=== PATIENT | female | born 1940 | race Caucasian/White ===

== ENCOUNTER 2019-11-25 09:49 | Observation (INO) | payer OTHER, SELFPAY ==
[2019-11-24 11:44] VITALS: BMI 24.4
[2019-11-25] VITALS (17 sets, daily range): BP systolic 92–126; BP diastolic 37–73; PULSE 72–96; RESP 12–20; TEMP 36.1–36.8; O2SAT 90–100; BMI 24.3
[2019-11-25] MEDS: LACTATED RINGERS 1,000 ML 42 ML IV (10:15)
[2019-11-25] MEDS: LACTATED RINGERS 1,000 ML 100 ML IV ×2 (11:00→13:00)
--- NOTE | 2019-11-25 11:21 | PM.PREOP ---
Pre-operative Note Interval Note History & Physical reviewed/Exam performed by Physician: Yes Changes to H&P: No
[2019-11-25] MEDS: CEFAZOLIN 2 GM/100 ML FROZ.PIGGY IV (11:35)
--- NOTE | 2019-11-25 12:07 | SUR.OPER ---
Supine on padded OR bed, head on pillow, arm padded and tucked at side, legs uncrossed, safety belt at thigh, tape over blanket over lower legs .
[2019-11-25] MEDS: BUPIVACAINE 0.25% W/ EPI 30 ML VIAL INJ (12:12)
--- NOTE | 2019-11-25 13:16 | PM.OP.1 ---
Operative Date/Time/Diagnoses Date of procedure: 11/25/19 Time of procedure: 13:16 Pre-op diagnosis: right inguinal hernia Post-op diagnosis: other (right indirect inguinal hernia, no left hernia; evidence of prior left inguinal hernia mesh repair) Procedure & Clinicians Procedure: laparoscopic repair of right inguinal hernia with mesh Same procedure as scheduled: Yes Indications: symptomatic right inguinal hernia Surgeon: Celeste Carver Yes if Unassisted: Yes Anesthesia Type: General Operative Notes Findings: no left inguinal hernia; evidence of prior left inguinal hernia mesh repair; right indirect inguinal hernia Specimen(s): none sent Prosthetic devices, grafts, tissues, transplants, or devices: BARD medium size 3-D max mesh Estimated Blood Loss (mL): 1 Blood products transfused: none Procedure in detail: The patient was brought into the operating room and placed supine on the OR table. Sequential compression devices were placed on both legs and turned on. Appropriate perioperative antibiotics were given prior to the start of surgery. General anesthesia was induced the patient was intubated. A Kemp catheter was placed sterilely in the bladder. The abdomen and groins were prepped and draped in sterile fashion. Surgical time-out was conducted. Local anesthetic was injected under the skin just superior to the umbilicus and a 5 mm vertical incision was made at this site. The umbilical stalk was grasped with a Thomas and elevated. A Veress needle was passed through the fascia into proper position. The position was tested with a saline drop test which was appropriate for intra-abdominal Veress needle placement. The abdomen was then insufflated in the usual fashion. Once insufflated to 15 mm Hg the Veress needle was removed and a 5 mm optical trocar was placed under direct vision using a 5 mm 30 degree scope. Once the camera was inside the abdomen I took a look around. There was no injury from port placement. Two additional ports were placed in a similar fashion in the right and left mid clavicular line at the level of the umbilicus, one handbreadth lateral to the umbilicus. The umbilical port was upsized to a 10mm port. Attention was turned to the pelvis, and both inguinal regions were evaluated. On the left there was no evidence of hernia, but surgical mesh could be seen beneath the peritoneum on the left side, consistent with prior left inguinal hernia repair. On the right side there was a deep hernia in the indirect space, with heavy scar. Local anesthetic was in the infiltrated into the abdominal wall using 0.25% Marcaine with epi, in the region of the expected peritoneal incision. Metzenbaum scissors attached to cautery were then used to incise the peritoneum transversely from the midline laterally to the ASIS, 10 cm superior to the inguinal hernia defect. The peritoneal flap was developed down to the inguinal hernia defect. There was only an indirect defect, and no direct or femoral defect was seen. Once the flap had been fully developed and the groin structures were completely exposed, and all potential defects had been fully evaluated, I then exposed the pubic tubercle and pushed down the bladder so that there was space for good mesh placement. A medium sized 3DMax macro porous mesh was then brought into the field. I placed it through the 10 mm port and positioned it within the surgical defect covering both hernia defects with 5 cm overlap in each direction. I then secured the mesh to the pubic tubercle in 2 locations using a Bard surgical Tacker. I then secured it to the abdominal wall at the superior edge of the mesh, far away from the triangle of doom and the triangle of pain. These tacks were placed avoiding the epigastric vessels as well. Once the mesh was secured in place I brought up the peritoneal flap. There was no clam shelling or bending of the mesh when the peritoneal flap was brought up. I then secured the peritoneum up to the abdominal wall using the Bard surgical Tacker, with dissolvable tacks. There was no gapping of the peritoneal flap or exposed mesh. At this point the mesh was well positioned, secured, and well covered. There was no exposed mesh, no bleeding, and the peritoneal flap was in good position. I then infiltrated the abdominal wall in the area of dissection with an additional 20 mL of local anesthetic. At this point the umbilical port site was closed with 0 Vicryl suture in the fascia using a Trey-Ziggy suture Passer. Insufflation was then removed from the abdomen, and the umbilical port site was closed with 3-0 Vicryl in the subcutaneous layers, and 4 Monocryl in the skin. The other 2 port sites were closed with 4 Monocryl in the skin. Each port site was sealed with Dermabond. Local anesthetic was given at each of the port sites and in the fascia. This concluded the procedure. At this point the needle sponge and instrument counts were correct. Patient was awakened from anesthesia and extubated. She developed sinus tachycardia with heart rate to 160 as she was waking up from anesthesia. She was given Esmolol by the anesthesiologist, with improvement in HR to 90's. The Kemp catheter was removed. She was transferred to the postanesthesia care unit in stable condition. Complications: none Post-operative Condition: stable Disposition: PACU Plan for aftercare: Dispo pending vitals and exam are stable and pain is well controlled in PACU.
[2019-11-25] MEDS: fentaNYL 100 MCG/2 ML INJ IV ×2 (13:50→14:00)
--- NOTE | 2019-11-25 14:06 | SUR.PHASEI ---
pt to be admitted. she is awake and can verbalize but she dozes off easily . Pt complains of 5 out of 10 pain at present. Pt has icepack to abdomen.
--- NOTE | 2019-11-25 14:17 | SUR.PHASEI ---
Attempted to call report on pt and they were unable to accept report for pt. They will call back in 15 minutes.
[2019-11-25] MEDS: ACETAMINOPHEN 325 MG TABLET 650 MG PO (17:08)
--- NOTE | 2019-11-25 17:53 | PC.NURSE ---
Addendum entered by Amirah Henry R.N. 11/25/19 22:40: 100% on room air following ambulation. Addendum entered by Amirah Henry R.N. 11/25/19 22:34: Ambulatory in hallway as per MD order with DOMESTIC HOUSEKEEPER escort. Trial of room air. Addendum entered by Amirah Henry R.N. 11/25/19 19:22: I.S. teaching completed and pt able to perform weakly. Encouraged use and goal set for pt. Continues to c/o abdominal pain exacerbated with cough 4/10. IV right wrist failed so dc'd and restarted left ac. Toradol administered. Spouse leaves for the evening. Original Note: Pt awake and alert in bed. Has pillow to abdomen for splinting with movement/coughing. Tele placed as per order. ICU informed. S.O. at bedside. Denies nausea. Admits to abdominal/incisional pain 4/10 increasing with cough. Room air 88-90% so 2L per NC replaced. Continuous pulse oximeter in place. BL calf scd's in place. Tylenol to manage pain. Denies nausea. Beginning diet with clear liquids. Up to commode to void with minimal assistance. Bed alarm in place. Some short term memory loss noted.
[2019-11-25] MEDS: KETOROLAC 15 MG/ML VIAL IV (18:11)
[2019-11-25] MEDS: SODIUM CHLORIDE 0.9% FLUSH 10 ML IV (19:15)
[2019-11-25] MEDS: SENNOSIDES 8.6 MG TABLET 17.2 MG PO (21:06)
[2019-11-25] MEDS: DOCUSATE 100 MG CAPSULE PO (21:06)
[2019-11-25] MEDS: HEPARIN 5,000 UNIT/ML VIAL 5000 UNIT SUBCUT (21:07)
[2019-11-26] VITALS: BP 114/58; PULSE 78; RESP 18; TEMP 36.5; O2SAT 95
--- NOTE | 2019-11-26 01:14 | PC.NURSE ---
SPO2 in room air while sleeping only 85%. 2 litters 02 applied & sat. 93-95%, will monitor.
[2019-11-26 05:29] LABS: Add Manual Diff / Slide Review NO; Basophils Absolute Auto 100 /uL (0-100); Basophils Percent Auto 1.2 % (0-2); Eosinophils Absolute Auto 100 /uL (0-450); Eosinophils Percent Auto 0.5 % (2-4); Hematocrit 33.8 % (36-46); Hemoglobin 11.5 g/dL (12.0-16.0); Lymphocytes Absolute Auto 2100 /uL (1100-4500); Lymphocytes Percent Auto 20.4 % (25-40); Monocytes Absolute Auto 1200 /uL (0-900); Monocytes Percent Auto 11.4 % (3-14); Neutrophils Absolute Auto 7000 /uL (1500-7000); Neutrophils Percent Auto 66.5 % (50-75); Platelet Count 288 X10^3/uL (150-400); Red Cell Distribution Width 14.4 % (11.6-14.8); White Blood Cell Count 10.5 X10^3/uL (4.5-11.0)
[2019-11-26 05:36] LABS: Blood Urea Nitrogen 15 mg/dL (7-17); Calcium 8.7 mg/dL (8.4-10.2); Carbon Dioxide 29 mmol/L (22-32); Chloride 107 mmol/L (98-107); Estimated Glomerular Filt Rate > 60.0 mL/min (>60); Glucose 94 mg/dL (80-110); HEMOLYSIS 19 (0-50); Magnesium 1.9 mg/dL (1.6-2.3); Sodium 141 mmol/L (137-145)
[2019-11-26 05:42] VITALS: BP 116/58; PULSE 85; RESP 16; TEMP 36.6; O2SAT 94
[2019-11-26 07:50] VITALS: BP 101/37; PULSE 64; RESP 16; TEMP 36.5; O2SAT 93
[2019-11-26] MEDS: SODIUM CHLORIDE 0.9% FLUSH 10 ML IV (08:57)
[2019-11-26] MEDS: SENNOSIDES 8.6 MG TABLET 17.2 MG PO (08:57)
[2019-11-26] MEDS: DULOXETINE 30 MG CAPSULE PO (08:57)
[2019-11-26] MEDS: DOCUSATE 100 MG CAPSULE PO (08:57)
[2019-11-26] MEDS: HEPARIN 5,000 UNIT/ML VIAL 5000 UNIT SUBCUT (08:57)
[2019-11-26 10:39] VITALS: BP 112/50; PULSE 70; RESP 16; TEMP 37.2; O2SAT 96
[2019-11-26] MEDS: OXYCODONE IR 5 MG TABLET PO (10:57)
--- NOTE | 2019-11-26 12:53 | CM.DANOTE ---
DCP: Case received, reviewed EMR. Patient had already been discharged, but was able to obtain information via EMR regarding patient's diagnosis and reason for surgery. DCP assessment completed with information currently available. Patient is a 78 year old female who admitted yesterday morning to the care of the surgical team. PCP: Dr. Alison Coronado. Payer: confirmed: [employer]. Patient came to the hospital for a surgical procedure. She had right inguinal hernia repair. Patient was discharged with instructions for no lifting over 10 pounds over 3 weeks. Patient already left hospital, but is noted that she lives with her , Serge, in [place], and should have his support for recovery. P: Patient was discharged home post surgery with no barriers. Gogo Wylie RN/[employer] Vice President
== END 2019-11-26 11:32 | disposition home or self-care (01) ==
LOC: OR 09:55 → AC 11-26 08:59 → OR 11-26 11:53 → AC 11-26 11:56
PROVIDERS: Admitting Provider Surgery; PCP Internal Medicine; Referring Provider Surgery; Visit Provider Surgery
PROC: 0YQ54ZZ Repair Right Inguinal Region, Percutaneous Endoscopic Approach (ICD-10-PCS; CPT 49650; principal; 2019-11-25 11:45)
DX: K40.90 Unilateral inguinal hernia, without obstruction or gangrene, not specified as recurrent (principal); R00.0 Tachycardia, unspecified
CPT/HCPCS: 49650; 36415; 80048; 83735; 85025; C1781; G0378; J0330; J0690; J1100; J1644; J1885; J2405; J2704; J3010

== ENCOUNTER 2020-01-04 17:27 | Emergency (ER) | payer OTHER, SELFPAY ==
[2019-11-25 15:12] VITALS: BMI 24.3
[2020-01-04 17:38] VITALS: BP 154/89; PULSE 96; RESP 16; TEMP 36.2; O2SAT 100; BMI 25.0
[2020-01-04] MEDS: SILVER SULFADIAZINE 1% CREAM 50 GM 1 APPLIC TOP (18:07)
[2020-01-04] MEDS: TET,DIPH,PERTUSS(ACELL),VAC/PF 0.5 ML SYRINGE IM (18:07)
[2020-01-04] MEDS: IBUPROFEN 400 MG TABLET PO (18:08)
--- NOTE | 2020-01-04 18:38 | ED_ITS ---
HPI - Skin/Abscess/Foreign Bdy <PHAM Miller - Last Filed: 01/04/20 18:46> General Chief complaint: Skin/Abscess/Foreign Body Stated complaint: Bad Burn On Both Cheeks Time Seen by Provider: 01/04/20 17:46 Source: patient Mode of arrival: Ambulatory Limitations: no limitations History of Present Illness HPI narrative: This is a 79-year-old female, nonsmoker, who presents to ED with sunburn with redness on her bilateral cheeks for last 4-5 days. Patient reports she just moved from [place] and has not been exposed to sun for a long time. She went out for a walk with her dog 4-5 days ago when the weather was nice with 55 degree F. and she got a sunburn on her face on her bilateral cheeks. Patient reports she has been using aloe gel, neomycin and Vaseline on affected face but pain is not getting better. Patient is unsure of last tetanus immunization. She denies history of diabetes and reports history of depression and anxiety. Patient denies fever, chills, nausea or vomiting or drainage from wound. Related Data Home Medications Medication Instructions Recorded Confirmed duloxetine 30 mg capsule,delayed 30 mg PO DAILY 11/12/19 11/25/19 release Previous Rx's Medication Instructions Recorded docusate sodium 100 mg PO BID #60 cap 11/25/19 oxycodone 5 mg PO Q4H PRN #30 tab 11/26/19 Allergies Allergy/AdvReac Type Severity Reaction Status Date / Time No Known Drug Allergies Allergy Verified 01/04/20 17:38 Review of Systems <PHAM Miller - Last Filed: 01/04/20 18:46> Review of Systems Narrative: General: Denies fever, chills, fatigue, malaise, sweats. HEENT: Denies sinus pain, ear pain, sore throat, difficulty swallowing, dizziness. Respiratory: Denies dyspnea, cough, wheezing, hemoptysis, sputum. Cardiovascular: Denies chest pain, palpitations, orthopnea, edema. Gastrointestinal: Denies nausea, vomiting, abdominal pain, diarrhea, constipation, melena. : Denies dysuria, frequency, incontinence, hematuria, urinary retention. Musculoskeletal: Denies weakness, joint pain or bony pain. Skin: See HPI Neurologic: Denies weakness, headache, numbness, change in speech, confusion, seizures, incoordination. Psychiatric: No concerning psychosocial issues. 12-point review of systems is negative except for those stated above. Patient History <PHAM Miller - Last Filed: 01/04/20 18:46> Medical History Anxiety (Acute) Depression (Acute) Surgical History H/O hysterectomy for benign disease (Acute) H/O shoulder surgery (Acute) Hx of abdominoplasty (Acute) Hx of appendectomy (Acute) Status post right foot surgery (Acute) Social History household members: spouse Smoking Status: Never smoker alcohol intake: never Smoking Status: Never smoker Substance Use Type: does not use Exam <PHAM Miller - Last Filed: 01/04/20 18:46> Narrative Exam Narrative: General appearance: well developed, well nourished, in no acute distress. Head: normocephalic, atraumatic, no scalp lesions, non-tender. ENT: Hearing grossly intact. Nose without bleeding, purulent discharge. Mucous membrane moist, no mucosal lesion. Throat without erythema, tonsillar hypertrophy or exudate. Uvula in midline, airway patent. Neck/Thyroid: neck supple, full range of motion, no visible masses or meningeal signs. No JVD, non-tender without lymphadenopathy. Skin: 1st degree superficial burn with redness and swelling on bilateral cheek without blisters or purulent drainage. Affected sites are shiny and moist from using Vaseline prior coming into ED. No suspicious rashes, lesions over visible areas. Warm and dry and appropriate color for ethnicity. Heart: no clubbing, no cyanosis, no edema. Lungs: Breathing even and unlabored. No stridor. No accessory muscles used. Able to speak in full sentences. Chest: normal shape and expansion. Abdomen: non-obese, non-distended. Neurologic: alert and oriented. Cognitive exam, INSTRUMENTATION ENGINEER and PNS grossly intact on informal exam. Psych: good eye contact, normal affect. Initial Vital Signs Initial Vital Signs: Vital Signs Temperature 97.1 F L 01/04/20 17:38 Pulse Rate 96 H 01/04/20 17:38 Respiratory Rate 16 01/04/20 17:38 Blood Pressure 154/89 H 01/04/20 17:38 Pulse Oximetry 100 01/04/20 17:38 <Kyle Smith DO - Last Filed: 01/04/20 19:03> Initial Vital Signs Initial Vital Signs: Vital Signs Temperature 97.1 F L 01/04/20 17:38 Pulse Rate 96 H 01/04/20 17:38 Respiratory Rate 16 01/04/20 17:38 Blood Pressure 154/89 H 01/04/20 17:38 Pulse Oximetry 100 01/04/20 17:38 Scores <PHAM Miller - Last Filed: 01/04/20 18:46> GCS Flora coma scale eye opening: Spontaneous [place] coma scale verbal response: Orientated Flora coma scale motor response: Obey commands [place] coma scale total score: 15 Course <PHAM Miller - Last Filed: 01/04/20 18:46> Orders Ordered: Discontinued Medications Diphtheria/Tetanus/Acell Pertussis (Adacel) 0.5 ml IM .ONCE ONE Stop: 01/04/20 17:56 Last Admin: 01/04/20 18:07 Dose: 0.5 ml Documented by: KANDY Ibuprofen (Advil) 400 mg PO NOW ONE Stop: 01/04/20 17:56 Last Admin: 01/04/20 18:08 Dose: 400 mg Documented by: KANDY Silver Sulfadiazine (Silvadene) 1 applic TOP NOW ONE Stop: 01/04/20 17:56 Last Admin: 01/04/20 18:07 Dose: 1 applic Documented by: KANDY Vital Signs Vital signs: Vital Signs - 8 hr 01/04/20 17:38 01/04/20 18:47 Temperature 97.1 F L Pulse Rate 96 H 78 Respiratory Rate 16 16 Blood Pressure 154/89 H 130/69 Pulse Oximetry 100 95 <Kyle Smith DO - Last Filed: 01/04/20 19:03> Orders Ordered: Discontinued Medications Diphtheria/Tetanus/Acell Pertussis (Adacel) 0.5 ml IM .ONCE ONE Stop: 01/04/20 17:56 Last Admin: 01/04/20 18:07 Dose: 0.5 ml Documented by: KANDY Ibuprofen (Advil) 400 mg PO NOW ONE Stop: 01/04/20 17:56 Last Admin: 01/04/20 18:08 Dose: 400 mg Documented by: KANDY Silver Sulfadiazine (Silvadene) 1 applic TOP NOW ONE Stop: 01/04/20 17:56 Last Admin: 01/04/20 18:07 Dose: 1 applic Documented by: KANDY Vital Signs Vital signs: Vital Signs - 8 hr 01/04/20 17:38 01/04/20 18:47 Temperature 97.1 F L Pulse Rate 96 H 78 Respiratory Rate 16 16 Blood Pressure 154/89 H 130/69 Pulse Oximetry 100 95 MDM - Skin/Abscess/Foreign Bdy <Roe PHAM Walker - Last Filed: 01/04/20 18:46> Differential Diagnosis Differential diagnosis: Likely other (First degree sunburn on face) Medical Records Attestation: I reviewed the patient's medical records. MDM Narrative Medical decision making narrative: This is a 79 year female who presents to ED with first-degree sunburn on bilateral cheeks for last 4-5 days. Patient is afebrile with a constitutional symptoms. Bilateral cheek with erythema and mild swelling and reports discomfort. Patient has been using [id number] aloe gel, Vaseline, neomycin without much improvement. Silvadene ointment has been applied on affected site and patient was medicated with ibuprofen for discomfort. Patient reports soap within ointment is soothing and burning sensation is decreased. Tdap has been updated today. Return precautions were discussed with the patient and patient advised to use Silvadene 2 to 3 times a day, aloe gel as needed and or bacitracin as needed. Patient verbalized understanding and agreement with the treatment plan. Discharge Plan Departure Patient Disposition: Home Clinical Impression: Burn of face, first degree Qualifiers: Encounter type: initial encounter Qualified Code(s): T20.10XA - Burn of first degree of head, face, and neck, unspecified site, initial encounter Discharge Date/Time: 01/04/20 18:47 Instructions: DI for Urrutia, Minor Urrutia (Alternative Therapy) Activity Restrictions/Additional Instructions: You have been diagnosed with [first-degree facial burn from sun exposure. You can take [id number] Tylenol and or Motrin as needed for discomfort. You can continue to use aloe gel on affected site several times a day, Silvadene ointment that has been dispensed from ED 2 to 3 times a day, or antibiotic ointment as needed. Keep the wound moist and intact. Tdap has been updated today.]. What to do: *Take your medications as directed. *Follow up with your primary care provider in 2-3 days, call for an appointment. Let them know you were seen in the ED and that we asked you to be seen in follow up. *Return to ED if you have any new, worsening, or concerning symptoms, such as [fever, purulent discharge, increasing pain, chest pain, breathing difficulty, increasing warmth/redness/swelling to affected site]. Prescriptions: No Action duloxetine [Cymbalta] 30 mg capsule,delayed release(DR/EC) 30 mg PO DAILY RF: 0 docusate sodium 100 mg capsule 100 mg PO BID Qty: 60 RF: 0 oxycodone 5 mg tablet 5 mg PO Q4H PRN (Reason: post operative pain) Qty: 30 RF: 0 Referrals: [facility] [Outside] Alison Coronado MD [Primary Care Provider] - <Kyle Smith DO - Last Filed: 01/04/20 19:03> Cosign ED Attending Cosignature Attestation: Dr Smith Co-Sign Statement: I was available for consultation during this patient's emergency department visit. This chart is signed by myself for administrative purposes only. I did not have direct contact with this patient during this visit. They were seen independently by the APC.
[2020-01-04 18:47] VITALS: BP 130/69; PULSE 78; RESP 16; O2SAT 95
== END 2020-01-04 18:47 | disposition home or self-care (01) ==
PROVIDERS: Emergency Provider Nurse Practitioner Family; PCP Internal Medicine
DX: T20.10XA Burn of first degree of head, face, and neck, unspecified site, initial encounter (principal); Z23 Encounter for immunization
CPT/HCPCS: 90471; 99283; 90715

== ENCOUNTER → 2020-10-21 15:47 | Outpatient (CLI) | payer OTHER, SELFPAY ==
[2019-11-25 15:12] VITALS: BMI 24.3
--- NOTE | 2020-10-21 15:49 | DI.MG.S_ITS ---
BILATERAL DIGITAL SCREENING MAMMOGRAM 3D/2D WITH CAD: 10/21/2020 Comparison is made to exams dated: 12/26/2018 mammogram, 12/06/2016 mammogram, and 12/07/2015 mammogram - [facility]. The tissue of both breasts is predominantly fatty. Current study was also evaluated with a Computer Aided Detection (CAD) system. No significant masses, calcifications, or other findings are seen in either breast. There has been no significant interval change. IMPRESSION: NEGATIVE There is no mammographic evidence of malignancy. A 1 year screening mammogram is recommended. This exam was interpreted at Station ID: [id number]. NOTE: For mammograms, a report in lay terms will be sent to the patient. Approximately 15% of breast malignancies will not be visualized mammographically. In the management of a palpable breast mass, a negative mammogram must not discourage biopsy of a clinically suspicious lesion. Electronically Signed By: Regulo Ashton M.D., jr/berto:10/21/2020 16:15:57 letter sent: Normal Exam ACR BI-RADS Category 1: Negative [id number]
== END ==
PROVIDERS: PCP Nurse Practitioner; Referring Provider Nurse Practitioner; Visit Provider Nurse Practitioner
DX: Z12.31 Encounter for screening mammogram for malignant neoplasm of breast (principal)
CPT/HCPCS: 77063; 77067

== ENCOUNTER → 2020-10-31 09:22 | Outpatient (CLI) | payer OTHER, SELFPAY ==
[2019-11-25 15:12] VITALS: BMI 24.3
--- NOTE | 2020-10-31 09:24 | DI.RAD.S_ITS ---
PROCEDURE: XR CHEST 2V INDICATIONS: cough TECHNIQUE: 2 views of the chest were acquired. COMPARISON: None. FINDINGS: Surgical changes and devices: None. Lungs and pleura: Lungs are clear. No pleural effusions or pneumothorax. Mediastinum: Mediastinal contours are normal. Heart size is normal. Bones and chest wall: There is S-shaped curvature of the spine.. Soft tissues appear unremarkable. Mild degenerative changes are seen in the shoulders bilaterally. IMPRESSION: No acute cardiopulmonary abnormality. Dictated by: Ariel Barnett M.D. on 10/31/2020 at 11:04 Approved by: Ariel Barnett M.D. on 10/31/2020 at 11:10
[2020-10-31 10:23] LABS: Add Manual Diff / Slide Review NO; Basophils Absolute Auto 100 /uL (0-100); Basophils Percent Auto 1.1 % (0-2); Eosinophils Absolute Auto 500 /uL (0-450); Eosinophils Percent Auto 6.8 % (2-4); Hematocrit 38.9 % (36-46); Hemoglobin 13.3 g/dL (12.0-16.0); Lymphocytes Absolute Auto 2400 /uL (1100-4500); Lymphocytes Percent Auto 32.1 % (25-40); Mean Corpuscular HGB Conc 34.1 % (30-36); Mean Corpuscular Hemoglobin 32.1 PG (26-34); Mean Corpuscular Volume 93.9 fL (80-100); Monocytes Absolute Auto 600 /uL (0-900); Monocytes Percent Auto 8.2 % (3-14); Neutrophils Absolute Auto 3800 /uL (1500-7000); Neutrophils Percent Auto 51.8 % (50-75); Platelet Count 335 X10^3/uL (150-400); Red Blood Cell Count 4.14 X10^6/uL (4.0-5.2); Red Cell Distribution Width 13.8 % (11.6-14.8); White Blood Cell Count 7.3 X10^3/uL (4.5-11.0)
[2020-10-31 10:50] LABS: Alanine Aminotransferase 12 IU/L (<35); Albumin 4.1 g/dL (3.5-5.0); Albumin Globulin Ratio 1.3 (1.0-2.8); Alkaline Phosphatase 62 U/L (38-126); Aspartate Aminotransferase 23 IU/L (14-36); BUN Creatinine Ratio 24.2 (6-22); Bilirubin Total 0.4 mg/dL (0.2-1.3); Blood Urea Nitrogen 16 mg/dL (7-17); Calcium 9.6 mg/dL (8.4-10.2); Carbon Dioxide 33 mmol/L (22-32); Chloride 105 mmol/L (98-107); Cholesterol 185 mg/dL (140-199); Estimated Glomerular Filt Rate > 60.0 mL/min (>60); Globulin 3.2 g/dL (1.7-4.1); Glucose 110 mg/dL (80-110); HDL Cholesterol 85 mg/dL (40-60); HEMOLYSIS < 15 (0-50); LDL Cholesterol Calculated 88 mg/dL (<100); Sodium 140 mmol/L (137-145); Total Protein 7.3 g/dL (6.3-8.2); Triglycerides 61 mg/dL (35-150)
[2020-10-31 11:07] LABS: Free T3, Triiodothyronine Free 4.22 pg/mL (2.77-5.27); Free T4, Direct Thyroxine 1.13 ng/dL (0.78-2.19)
[2020-10-31 11:20] LABS: Thyroid Stimulating Hormone 1.17 uIU/mL (0.47-4.68)
== END ==
PROVIDERS: PCP Nurse Practitioner; Referring Provider Nurse Practitioner; Visit Provider Nurse Practitioner
DX: R05 Cough (principal); D64.9 Anemia, unspecified; F32.9 Major depressive disorder, single episode, unspecified; F41.9 Anxiety disorder, unspecified; R41.3 Other amnesia
CPT/HCPCS: 36415; 71046; 80053; 80061; 84439; 84443; 84481; 85025

== ENCOUNTER 2021-06-23 04:37 | Emergency (ER) | payer OTHER, SELFPAY ==
[2019-11-25 15:12] VITALS: BMI 24.3
--- NOTE | 2021-06-23 04:47 | DI.RAD.S_ITS ---
PROCEDURE: XR WRIST LT MIN 3V INDICATIONS: injury with pain TECHNIQUE: For views of the wrist were acquired. COMPARISON: None. FINDINGS: Bones: Transverse fracture of the distal radius which is dorsally displaced. Possible nondisplaced fracture of the base of the ulnar styloid process. Scaphoid view: Scaphoid is intact. Soft tissues: No suspicious soft tissue calcifications. IMPRESSION: Distal radius fracture and possible ulnar styloid process fracture Dictated by: Sonia Cordero MD, PhD on 06/23/2021 at 7:44 Approved by: Sonia Cordero MD, PhD on 06/23/2021 at 7:45
[2021-06-23 04:48] VITALS: BP 138/65; PULSE 87; RESP 17; TEMP 36.5; O2SAT 98; BMI 23.2
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
[2021-06-23] MEDS: HYDROMORPHONE 1 MG INJ 0.5 MG IM (05:21)
[2021-06-23 07:48] VITALS: BP 110/54; PULSE 88; RESP 18; TEMP 35.9; O2SAT 93
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
[2021-06-23] MEDS: HYDROCODONE/ACET 5/325 TABLET 1 TAB PO (08:20)
[2021-06-23 11:22] VITALS: BP 114/69; PULSE 93; RESP 18; O2SAT 94
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
[2021-06-23 14:26] VITALS: BP 148/78; PULSE 78; RESP 18; O2SAT 99
== END 2021-06-23 14:28 | disposition home or self-care (01) ==
PROVIDERS: Emergency Provider Emergency Medicine; PCP Nurse Practitioner
DX: S52.502A Unspecified fracture of the lower end of left radius, initial encounter for closed fracture (principal); W01.0XXA Fall on same level from slipping, tripping and stumbling without subsequent striking against object, initial encounter; G30.9 Alzheimer's disease, unspecified; F02.80 Dementia in other diseases classified elsewhere, unspecified severity, without behavioral disturbance, psychotic disturbance, mood disturbance, and anxiety
CPT/HCPCS: 29125; 73110; 96372; 99283; 99284; J1170

== ENCOUNTER 2021-06-24 16:08 | Emergency (ER) | payer OTHER, SELFPAY ==
[2019-11-25 15:12] VITALS: BMI 24.3
[2021-06-24 16:33] VITALS: BP 133/85; PULSE 91; RESP 18; TEMP 36.6; O2SAT 95
== END 2021-06-24 16:44 | disposition left against medical advice (07) ==
PROVIDERS: Emergency Provider Emergency Medicine; PCP Nurse Practitioner
CPT/HCPCS: 99281

== ENCOUNTER 2021-06-25 09:20 | Emergency (ER) | payer OTHER, SELFPAY ==
[2019-11-25 15:12] VITALS: BMI 24.3
[2021-06-25 09:30] VITALS: BMI 21.8
--- NOTE | 2021-06-25 10:01 | ED.EXTPRO ---
HPI - Extremity Problem General Chief complaint: Extremity Problem,Nontraumatic Stated complaint: cast on left arm fell off Time Seen by Provider: 06/25/21 09:53 Source: patient and family Mode of arrival: Ambulatory Limitations: no limitations History of Present Illness HPI Narrative: Patient is an 80-year-old female presents with left arm issue. She was seen evaluated here a few days ago found to have a fracture of her distal radius. She was placed in a splint. She says it was really itchy this morning in the to the splint off and removed the cotton. was concerned because her hand was more swollen and black and blue. She has no numbness tingling or weakness. Related Data Home Medications Medication Instructions Recorded Confirmed cholecalciferol (vitamin D3) 50 50 mcg PO DAILY 09/05/20 10/25/20 mcg (2,000 unit) capsule cyanocobalamin (vitamin B-12) 3,000 mcg PO DAILY cap 09/05/20 10/25/20 1,000 mcg capsule vitamin E (dl, acetate) 180 mg 400 unit PO DAILY 09/05/20 10/25/20 (400 unit) capsule folic acid 1 mg tablet 2 mg PO DAILY 10/25/20 10/25/20 omeprazole magnesium 20 mg 20 mg PO DAILY 10/25/20 10/25/20 tablet,delayed release (Prilosec OTC) Previous Rx's Medication Instructions Recorded duloxetine 30 mg capsule,delayed 30 mg PO BID #180 cap 10/25/20 release (Cymbalta) hydrocodone 5 mg-acetaminophen 325 1 tab PO Q6H PRN #10 tab 06/23/21 mg tablet Allergies Allergy/AdvReac Type Severity Reaction Status Date / Time No Known Drug Allergies Allergy Verified 06/23/21 07:04 Review of Systems Review of Systems Narrative: GENERAL: Denies chills,fever HEENT: Denies throat pain RESPIRATORY: Denies dyspnea, cough, wheezing CARDIOVASCULAR: Denies chest pain, palpitations GASTROINTESTINAL: Denies nausea, vomiting MUSCULOSKELETAL: De see HPI SKIN: + pruritus No rash, no laceration NEUROLOGIC: Denies weakness, dizziness, headache, numbness 8 point review of systems is negative except for those stated above and HPI Patient History Medical History Anemia Anxiety Depression Fall Fall from ground level Left upper arm pain Memory loss Surgical History H/O hysterectomy for benign disease H/O shoulder surgery Hx of abdominoplasty Hx of appendectomy Status post right foot surgery Social History household members: spouse Smoking Status: Never smoker alcohol intake: never Smoking Status: Never smoker Substance Use Type: does not use Exam Initial Vital Signs Initial Vital Signs: Vital Signs Pulse Rate 80 06/25/21 10:22 Respiratory Rate 14 06/25/21 10:22 Blood Pressure 143/70 H 06/25/21 10:22 Pulse Oximetry 97 06/25/21 10:22 GENERAL: Alert well-appearing 80-year-old female CARDIOVASCULAR: peripheral pulses in tact, cap refill <2 sec RESPIRATORY: No respiratory distress, speaks in full sentences without difficulty EXTREMITIES: Normal range of motion, no clubbing or edema. Neurovascularly intact Left upper extremity currently in splint contusion and swelling of hand able to fingers cap refill less than 2 seconds NEUROLOGICAL: Cranial nerves II through XII grossly intact. Normal gait and speech. SKIN: Left upper extremity Skin is clean warm and dry a contusion noted. No sign of infection Course Orders Ordered: Discontinued Medications Hydrocodone Bitart/Acetaminophen (Hydrocodone/Acet 5/325 Tablet) 1 tab PO NOW ONE Stop: 06/25/21 10:03 Last Admin: 06/25/21 10:14 Dose: 1 tab Documented by: SANTOS MDM - Extremity (Nontraumatic) MDM Narrative Medical decision making narrative: I have applied cotton underneath the splint patient says that that does feel better. It is rewrapped. I recommend keeping it elevated in using a sling. They say that she is keeping elevated. was concerned because of the swelling and contusion. No significant abnormality Discharge Plan Departure Patient Disposition: Home Clinical Impression: Distal radial fracture Qualifiers: Encounter type: subsequent encounter Fracture type: closed Laterality: left Fracture healing: with routine healing Instructions: Wrist Fracture Activity Restrictions/Additional Instructions: *You have been diagnosed with wrist fracture *What to do: Keep splint on. It can be itchy but try to keep the splint on. Keep arm elevated as much as possible use sling moving around *Continue to take medications as directed Continue pain medications previously prescribed *Follow up with your primary care provider in 2-3 days Follow-up with Orthopedics call tomorrow to schedule appointment *Return to ER if you should have increasing pain, swelling numbness or any new, worsening or concerning symptoms Prescriptions: No Action cyanocobalamin (vitamin B-12) 1,000 mcg capsule 3,000 mcg PO DAILY RF: 0 cholecalciferol (vitamin D3) 50 mcg (2,000 unit) capsule 50 mcg PO DAILY RF: 0 vitamin E (dl, acetate) 400 unit capsule 400 unit PO DAILY RF: 0 omeprazole magnesium [Prilosec OTC] 20 mg tablet,delayed release (DR/EC) 20 mg PO DAILY RF: 0 folic acid 1 mg tablet 2 mg PO DAILY RF: 0 duloxetine [Cymbalta] 30 mg capsule,delayed release(DR/EC) 30 mg PO BID Qty: 180 RF: 3 hydrocodone-acetaminophen 5-325 mg tablet 1 tab PO Q6H PRN (Reason: pain) Qty: 10 RF: 0 Referrals: [facility] [Provider Group]
[2021-06-25] MEDS: HYDROCODONE/ACET 5/325 TABLET 1 TAB PO (10:14)
[2021-06-25 10:22] VITALS: BP 143/70; PULSE 80; RESP 14; O2SAT 97
== END 2021-06-25 10:24 | disposition home or self-care (01) ==
PROVIDERS: Emergency Provider Emergency Medicine
DX: S52.502D Unspecified fracture of the lower end of left radius, subsequent encounter for closed fracture with routine healing (principal)
CPT/HCPCS: 99283

== ENCOUNTER 2021-07-14 08:22 | Day surgery (SDC) | payer OTHER, SELFPAY ==
[2019-11-25 15:12] VITALS: BMI 24.3
[2021-07-13 10:54] VITALS: BMI 25.3
[2021-07-14] VITALS (7 sets, daily range): BP systolic 110–135; BP diastolic 40–70; PULSE 18–97; RESP 12–93; TEMP 36.1–36.6; O2SAT 92; BMI 25.3
[2021-07-14 09:14] LABS: COVID19 -Nasal RAPID Negative (Negative)
[2021-07-14] MEDS: LACTATED RINGERS 1,000 ML 42 ML IV (09:59)
--- NOTE | 2021-07-14 10:22 | SUR.OPER ---
Supine on padded OR bed, head on pillow, arms secured on padded arm boards at <90 degrees abduction, legs uncrossed, safety belt at thigh, tape over blanket over lower legs.
--- NOTE | 2021-07-14 11:25 | PM.PREOP ---
Pre-operative Note COVID-19 COVID-19 status: Negative Interval Note History & Physical reviewed/Exam performed by Physician: Yes Changes to H&P: No
--- NOTE | 2021-07-14 11:26 | P.OP_ITS ---
Operative Date/Time/Diagnoses Date of procedure: 07/14/21 Time of procedure: 11:40 Pre-op diagnosis: Left distal radius fracture Post-op diagnosis: same Procedure & Clinicians Procedure: ORIF left distal radius fracture Same procedure as scheduled: Yes Indications: This 80-year-old female who fell on her outstretched left hand and has a displaced left distal radius fracture she is brought to the operating room for open reduction internal fixation Surgeon: Jenny Murguia Click Yes if Unassisted: Yes Anesthesia Type: General Operative Notes Findings: Soft bone, acceptable reduction and stable internal fixation, partially healed required some freeing of the fracture. Closure Type: primary Specimen(s): none sent Prosthetic devices, grafts, tissues, transplants, or devices: Arthrex distal volar plate Estimated Blood Loss (mL): 50 Blood products transfused: none Tourniquet time (min): 100 Procedure in detail: Patient is brought to the operating room she underwent induction of a general anesthesia. Her left upper extremity was prepped draped standard sterile fashion. She was given IV antibiotics and a time-out was performed tourniquet was elevated to 250 mmHg. Volar based incision was made dissection was carried out through skin and subcutaneous tissues. Dissection was carried out down along the FCR. The fascia on the deep aspect of her FCR was carefully opened. The muscle was gently stripped from the distal radius. Dissection was carried out to the fracture site. It was meticulously mobilized the K-wire to slightly loosen the fracture. It was partially healed and the displaced location. It was somewhat difficult to adequately reduce and carefully mobilized. Eventually I fixed the plate to the distal fragment freed the fracture site and then used the plate partially to further reduce reduced the fracture. Adequate reduction was achieved. It was then carefully reduced and fixed with a volar plate. Mini C-arm was used to confirm adequacy of red uction and position of plate and screws. The position of fracture as well as all of the screws was meticulously checked. Adequate reduction was achieved and there was stable fixation. The wound was meticulously irrigated with normal saline. Marcaine was injected. The wound was closed with interrupted Vicryl and interrupted nylon. The wound was dressed sterilely and placed in a short- arm splint. She tolerated the procedure well she was transferred to recovery room a satisfactory condition. Complications none. Complications: none Post-operative Condition: stable Disposition: same day surgery Plan for aftercare: Return to clinic in 10-14 days for suture removal, x-rays and possible splint or wrist brace.
[2021-07-14] MEDS: CEFAZOLIN 1 GM VIAL 2 GM IV (12:07)
--- NOTE | 2021-07-14 12:14 | SUR.OPER ---
Supine on padded OR bed, head on pillow, arm Right secured on padded arm board at <90 degrees abduction. Left arm positioned on padded arm table. legs uncrossed, safety belt at thigh, tape over blanket over lower legs.
[2021-07-14] MEDS: BUPIVACAINE 0.5% (PF) VIAL 30 ML INJ (12:24)
--- NOTE | 2021-07-14 14:51 | SUR.PHASEII ---
Report from LISA Brantley. Pt on 2LNC with O2 sats 95%. Started on IS. Able to get up to 900ml. At 1449, pt on room air. O2 sats 89%. More IS done with sats up to 93%
--- NOTE | 2021-07-14 15:18 | SUR.PHASEII ---
O2 sats maintained >= to 92% on room air.
== END 2021-07-14 15:15 | disposition home or self-care (01) ==
PROVIDERS: Referring Provider Orthopaedic Surgery; Visit Provider Orthopaedic Surgery
PROC: (CPT 25608; principal; 2021-07-14 11:15)
DX: S52.572A Other intraarticular fracture of lower end of left radius, initial encounter for closed fracture (principal); Z20.822 Contact with and (suspected) exposure to COVID-19; W19.XXXA Unspecified fall, initial encounter
CPT/HCPCS: 25608; 87635; J0690; J1100; J2405; J2704; J3010

== ENCOUNTER 2021-07-15 06:45 | Emergency (ER) | payer OTHER, SELFPAY ==
[2019-11-25 15:12] VITALS: BMI 24.3
[2021-07-15 06:59] VITALS: BP 122/84; PULSE 73; RESP 20; TEMP 35.8; O2SAT 94; BMI 24.2
[2021-07-15] MEDS: ACETAMINOPHEN 325 MG TABLET PO (07:20)
[2021-07-15] MEDS: HYDROCODONE/ACET 5/325 TABLET 1 TAB PO (07:21)
--- NOTE | 2021-07-15 08:19 | ED_ITS ---
HPI - Extremity Injury (Upper) General Chief Complaint: Extremity Injury, Upper Stated Complaint: left arm pain/injury Time Seen by Provider: 07/15/21 06:52 Source: patient and family Mode of arrival: Ambulatory Limitations: no limitations History of Present Illness HPI narrative: 80F nonsmoker with history of recent surgically repaired left distal radius fracture presents with increasing pain upon waking this morning. She fractured her wrist a few weeks ago and was surgically repaired yesterday. She had a nerve block that controlled her plain with great success and therefore she did not get her pain prescription filled. Upon waking this morning her hand was throbbing and she was in significant pain and could not improved the symptoms at home. She denies any numbness, tingling or weakness. She denies any new injury or trauma. She is otherwise well and free of complaint Related Data Home Medications Medication Instructions Recorded Confirmed cholecalciferol (vitamin D3) 50 50 mcg PO DAILY 09/05/20 07/14/21 mcg (2,000 unit) capsule cyanocobalamin (vitamin B-12) 3,000 mcg PO DAILY cap 09/05/20 07/14/21 1,000 mcg capsule vitamin E (dl, acetate) 180 mg 400 unit PO DAILY 09/05/20 07/14/21 (400 unit) capsule folic acid 1 mg tablet 2 mg PO DAILY 10/25/20 07/14/21 omeprazole magnesium 20 mg 20 mg PO DAILY 10/25/20 07/14/21 tablet,delayed release (Prilosec OTC) docusate sodium 100 mg capsule 100 mg PO DAILY 07/14/21 07/14/21 (Stool Softener) rivastigmine 4.6 mg TRANSDERMAL DAILY 07/14/21 07/14/21 Previous Rx's Medication Instructions Recorded duloxetine 30 mg capsule,delayed 30 mg PO BID #180 cap 10/25/20 release (Cymbalta) hydrocodone 5 mg-acetaminophen 325 1 tab PO BEDTIME PRN #10 tab 06/27/21 mg tablet hydrocodone 5 mg-acetaminophen 325 1 tab PO Q8H PRN #20 tab 07/14/21 mg tablet Allergies Allergy/AdvReac Type Severity Reaction Status Date / Time No Known Drug Allergies Allergy Verified 07/14/21 09:12 Review of Systems Review of Systems Narrative: GENERAL: Denies chills, fatigue, malaise, fever, sweats. HEENT: Denies sinus pain, ear pain, sore throat, difficulty swallowing, dizziness. RESPIRATORY: Denies dyspnea, cough, wheezing, hemoptysis, sputum. CARDIOVASCULAR: Denies chest pain, palpitations, orthopnea, edema, GASTROINTESTINAL: Denies nausea, vomiting, abdominal pain, diarrhea, constipa tion, melena. : Denies dysuria, frequency, incontinence, hematuria, urinary retention. MUSCULOSKELETAL: See HPI SKIN: Denies rash, skin lesions, or other NEUROLOGIC: Denies weakness, headache, numbness, change in speech, confusion, seizures, incoordination. PSYCHIATRIC: No concerning psychosocial issues. 12 point review of systems is negative except for those stated above Patient History Medical History Anemia Anxiety Depression Fall Fall from ground level Left upper arm pain Memory loss Surgical History H/O hysterectomy for benign disease H/O shoulder surgery Hx of abdominoplasty Hx of appendectomy Hx of right inguinal hernia repair (11/25/19) Status post right foot surgery Social History household members: spouse Smoking Status: Former smoker alcohol intake: never Smoking Status: Former smoker Substance Use Type: does not use Exam Narrative Exam Narrative: GEN: AOx3 and in mild distress EYES: Pupils are equal, round, and reactive to light and accommodation. Extraoccular muscles are intact bilaterally. There is no subconjunctival hemorrhage or exudate. CHEST: Lungs are clear to auscultation bilaterally and free of wheezes, rales, or rhonchi. Heart rate is regular rhythm, there are no murmurs, clicks, rubs, or gallops. There is no chest wall tenderness. ABD: Abdomen is soft and nontender. There is no guarding or rebound. Bowel sounds are normal in all 4 quadrants. There is no mass or organomegaly. EXT: Left wrist in splint, full range of motion of fingers, cap refill less than 2 seconds, sensation intact. Splint taken down and upon removal of Itz wrap she feels improvement in symptoms. SKIN: Warm, pink, and dry. No erythema or rash Initial Vital Signs Initial Vital Signs: Vital Signs Temperature 96.4 F L 07/15/21 06:59 Pulse Rate 73 07/15/21 06:59 Respiratory Rate 20 07/15/21 06:59 Blood Pressure 122/84 07/15/21 06:59 Pulse Oximetry 94 07/15/21 06:59 Course Orders Ordered: Discontinued Medications Acetaminophen (Acetaminophen 325 Mg Tablet) 325 mg PO NOW ONE Stop: 07/15/21 06:59 Last Admin: 07/15/21 07:20 Dose: 325 mg Documented by: ARAVIND Hydrocodone Bitart/Acetaminophen (Hydrocodone/Acet 5/325 Tablet) 1 tab PO NOW ONE Stop: 07/15/21 06:59 Last Admin: 07/15/21 07:21 Dose: 1 tab Documented by: ARAVIND Vital Signs Vital signs: Vital Signs - 8 hr 07/15/21 06:59 Temperature 96.4 F L Pulse Rate 73 Respiratory Rate 20 Blood Pressure 122/84 Pulse Oximetry 94 MDM - Extremity Injury (Upper) MDM Narrative Medical decision making narrative: Patient with postoperative pain, no signs of compartment syndrome. Likely a combination of not taking her pain meds and a splint was a bit tight. She feels great improvement after the above-stated therapies including loosening the splint a small amount. She has been given return precautions and questions answered to her apparent satisfaction Discharge Plan Departure Patient Disposition: Home Clinical Impression: Post-op pain Instructions: DI for Wrist Pain Activity Restrictions/Additional Instructions: *You have been diagnosed with [left wrist pain after surgery. This is likely a combination of the splint being tight and not taking her pain medications. *What to do: *Please continue to take your regular medications as directed. [ ] New medication prescriptions sent to your pharmacy: [ ] [ ] New medication written as a paper prescription [ x] No new medications given *Please follow up with your primary care provider in 2-3 days, call for an appointment. Let them know you were seen in the Emergency Department and that we ask that you be seen in follow up. We will electronically transmit a record of today's note if your PCP is in our system *If you do not have a primary care provider please contact the [facility] Resource line at [phone]. They will ask some questions about your medical history and help get you set up with a doctor in the community. *Return to Emergency Department if you should have any new, worsening or concerning symptoms, such as [fever greater than 101 F, shaking chills, worsening pain, persistent vomiting or other bothersome symptoms] Prescriptions: No Action cyanocobalamin (vitamin B-12) 1,000 mcg capsule 3,000 mcg PO DAILY RF: 0 cholecalciferol (vitamin D3) 50 mcg (2,000 unit) capsule 50 mcg PO DAILY RF: 0 vitamin E (dl, acetate) 400 unit capsule 400 unit PO DAILY RF: 0 omeprazole magnesium [Prilosec OTC] 20 mg tablet,delayed release (DR/EC) 20 mg PO DAILY RF: 0 folic acid 1 mg tablet 2 mg PO DAILY RF: 0 duloxetine [Cymbalta] 30 mg capsule,delayed release(DR/EC) 30 mg PO BID Qty: 180 RF: 3 hydrocodone-acetaminophen 5-325 mg tablet 1 tab PO BEDTIME PRN (Reason: pain) Qty: 10 RF: 0 docusate sodium [Stool Softener] 100 mg capsule 100 mg PO DAILY RF: 0 rivastigmine 4.6 mg/24 hour patch 24 hour 4.6 mg transdermal DAILY RF: 0 hydrocodone-acetaminophen 5-325 mg tablet 1 tab PO Q8H PRN (Reason: pain) Qty: 20 RF: 0 Referrals: Jenny Murguia MD [Physician] -
[2021-07-15 09:02] VITALS: BP 129/62; PULSE 75; RESP 19; O2SAT 96
== END 2021-07-15 09:07 | disposition home or self-care (01) ==
PROVIDERS: Emergency Provider Emergency Medicine
DX: G89.18 Other acute postprocedural pain (principal); M25.532 Pain in left wrist
CPT/HCPCS: 99283